=== PATIENT | female | born 1940 | race Caucasian/White ===

== ENCOUNTER → 2024-10-30 | Outpatient (CLI) | payer MEDICARE, BC, SELFPAY ==
[2024-10-30 12:58] LABS: Basophils % (Auto) 0 % (0-2.5); Eosinophils # (Auto) 0.1 Thou/mm3 (0.0-0.5); Eosinophils % (Auto) 1 % (0-10); Hematocrit 44.7 % (36.0-46.0); Hemoglobin 14.5 g/dL (12.0-16.0); Immature Granulocytes % (Auto) 0 % (0-0); Immature Granulocytes Auto 0.03 Thou/mm3 (0.00-0.00); Lymphocytes # (Auto) 1.5 Thou/mm3 (1.0-4.8); Lymphocytes % (Auto) 22 % (10-50); Mean Corpuscular HGB Conc 32.4 g/dl (31.0-37.0); Mean Corpuscular Hemoglobin 30.3 pg (25.0-35.0); Mean Corpuscular Volume 94 fL (80-100); Monocytes # (Auto) 0.6 Thou/mm3 (0.0-0.8); Monocytes % (Auto) 9 % (0-12); Neutrophils # (Auto) 4.6 Thou/mm3 (1.8-7.7); Neutrophils % (Auto) 68 % (37-80); Nucleated Red Blood Cell % 0 /100 WBC (0); Platelet Count 257 Thou/mm3 (140-440); RDW Standard Deviation 45.1 fL (36.4-46.3); Red Blood Count 4.78 Miln/mm3 (4.00-5.20); White Blood Count 6.8 Thou/mm3 (3.6-11.0)
[2024-10-30 13:16] LABS: Collection Type, Urine Clean Catch
[2024-10-30 13:21] LABS: Alanine Aminotransferase 16 U/L (10-49); Albumin, Serum 4.5 gm/dL (3.4-4.8); Albumin/Globulin Ratio 1.8 (1.2-2.2); Alkaline Phosphatase 129 U/L (46-116); Anion Gap 6 (7-16); Aspartate Amino Transferase 29 U/L (0-34); BUN/Creatinine Ratio 17 Ratio (12-20); Bilirubin,Total 0.8 mg/dL (0.3-1.2); Blood Urea Nitrogen 19 mg/dL (9-23); Calcium 10.2 mg/dL (8.3-10.6); Calcium (Corrected) 10.2 mg/dL (8.5-10.1); Carbon Dioxide 31.3 mMol/L (20.0-31.0); Cardiac Risk Estimate 3.3 RATIO (3.7-5.6); Chloride 104 mMol/L (98-107); Cholesterol 194 mg/dL (132-200); Creatinine (Component) 1.1 mg/dL (0.6-1.3); Free T4 (Free Thyroxine) 1.21 ng/dL (0.89-1.76); Globulin 2.5 gm/dL (2.3-3.5); Glucose 99 mg/dL (74-106); HDL Cholesterol 59 mg/dL (40-60); LDL Cholesterol,Calculated 108 mg/dL (0-130); Osmolality,Calculated 283 (275-295); Potassium 4.7 mMol/L (3.4-5.1); Sodium 141 mMol/L (136-145); Thyroid Stimulating Hormone 1.93 uIU/mL (0.55-4.78); Triglycerides 133 mg/dL (30-150); eGFR 50 See Note
[2024-10-30 13:44] LABS: Bilirubin,Urine Negative (Negative); Blood,Urine Negative (Negative); Clarity,Urine Turbid (Clear/Hazy); Color,Urine Yellow (Lt Yel-Yel); Glucose, Urine Negative (Negative); Ketones,Urine Negative (Negative); Leukocyte Esterase,Urine Positive (Negative); Nitrite,Urine Positive (Negative); PH,Urine 6.5 (5.0-7.0); Protein,Urine Negative (Neg - Trace); RBC,Urine 2 /hpf (0-3); Squamous Epithelial Cell,Urine 2 /hpf (0-5); Urobilinogen,Urine Negative mg/dL (0.0-1.0); WBC,Urine 27 /hpf (0-5)
[2024-10-30 13:50] LABS: Culture Indicated,Urine Yes
== END | disposition home or self-care (01) ==
LOC: COPL 12:29
PROVIDERS: PCP Internal Medicine; Referring Provider Internal Medicine; Visit Provider Internal Medicine
DX: I10 Essential (primary) hypertension (principal)
CPT/HCPCS: 36415; 80053; 80061; 81001; 84439; 84443; 85025; 87077; 87086; 87186

== ENCOUNTER 2025-03-23 10:29 | Emergency (ER) | payer MEDICARE, BC, SELFPAY ==
[2025-03-23 10:55] VITALS: BP 150/83; PULSE 81; RESP 18; TEMP 37.2; O2SAT 97; BMI 23.3
--- NOTE | 2025-03-23 11:25 | XR_ITS ---
Examination: Foot, left, 3 views Technique: AP, oblique, lateral views foot, 3 views Date and time of exam: March 23, 2025, 1133 hrs. Indications: Patient fell today with injury to the foot, foot pain Findings: Severe osteopenia No acute fracture No dislocation Impression: No acute fracture Given the severe osteopenia, suggest short-term follow-up foot films as clinically warranted
--- NOTE | 2025-03-23 11:25 | XR_ITS ---
EXAMINATION: Ankle, right 3 views . Technique: Ankle AP, oblique, lateral 3 views Date and time of exam: March 23, 2025, 1133 hrs. Indications: Fell today with into the ankle, ankle pain. Findings: Severe osteopenia. No acute fracture. No ankle dislocation Impression: No acute fracture
--- NOTE | 2025-03-23 11:51 | PD.EDANKLE ---
Lower Extremity Injury RME/HPI General Chief Complaint: Ankle/Foot Injury Stated Complaint: Left foot pain since yesterday Time Seen by Provider: 03/23/25 10:52 Arrival date/time: 03/23/25 10:29 This is an 84-year-old female that comes into the emergency room complaining of left ankle injury. Patient states that she was laying down and she felt like someone was at her door. Patient states she tripped over her recliner and injured her left ankle. Patient's left ankle slightly swollen. Patient reports no other injuries. Related Data Home Medications ?Medication ?Instructions ?Recorded ?Confirmed flecainide 100 mg tablet 100 mg PO QDAY 02/22/19 02/22/19 Allergies Allergy/AdvReac Type Severity Reaction Status Date / Time Penicillins Allergy Intermediate Hives Verified 03/23/25 10:33 Sulfa (Sulfonamide Allergy Unknown Verified 03/23/25 10:33 Antibiotics) Review of Systems Review of Systems Systems Reviewed: All systems reviewed, normal except as documented Past Medical History Past Medical History NEUROLOGIC: Negative Neurological Disorders or Seizures CARDIAC: Positive Cardiac Disorders and Atrial Fibrillation (HAD RECENT ABLATION); Negative Congestive Heart Failure RESPIRATORY: Negative Chronic Obstructive Pulmonary Disease (COPD) GASTROINTESTINAL: Positive Gastrointestinal Disorders (ECTAL BLEEDING), Gastrointestinal Bleed (RECTAL) and Gastroesophageal Reflux Disease (OCCASSIONAL); Negative Colorectal Cancer GENITOURINARY: Negative Genitourinary Disorders or Renal Disease REPRODUCTIVE: Positive Breast Cancer (RIGHT BREAST) and Previous Pregnancies (X2) MUSCULOSKELETAL: Positive Musculoskeletal Disorders and Arthritis; Negative Bone Cancer or Carpal Tunnel Syndrome ENDOCRINE: Negative Endocrine Disorders, Diabetes Mellitus Type 1 or Diabetes Mellitus Type 2 HEMATOLOGIC: Positive Clotting Problems (ON ELOQUIS); Negative Blood Disorders OTHER HISTORY: Positive Radiation Therapy, Chicken Pox, Cancer and Breast Cancer (RIGHT BREAST); Negative Falls, Blood Transfusions, Blood Transfusion Reaction, Anesthesia Reactions, Organ Transplant, MRSA, Cervical Cancer, Colorectal Cancer, Lung Cancer or Ovarian Cancer Family History FAMILY HISTORY: Positive Family Cardiac Disorders (HTN- [place]) Surgical History SURGICAL: Positive Cardiac Surgery (CARDIAC ABLATION) and Hysterectomy; Negative Endocrine Surgery, Ear Surgery, Abdominal Surgery, Nephrectomy, Joint Replacement, Amputation, Open Reduction Internal Fixation, Arthroscopy or Organ Transplant Social History SMOKING STATUS: Never smoker ED Exam Narrative Physical exam: VITAL SIGNS: Reviewed. GENERAL APPEARANCE: Alert and interactive, follows commands, no acute distress HEAD AND FACE: Non-traumatic. ENT: PERRL, conjuctiva pink and clear, eyelid no trauma, Mucous membrane moist. NECK: Supple, nontender, no nuchal rigidity. CHEST: No tenderness, no crepitus, no paradoxical movement, no retractions. LUNGS: breathing even and unlabored HEART: Regular rate, cap refill less than 2 seconds ABDOMEN: Soft, nondistended, no guarding, nontender, no rebound, no masses, NEUROLOGICAL: Gross motor function intact sensory function intact, Appropriate for age. MUSCULOSKELETAL: low back nontender, full range of motion. EXTREMITIES: mild swelling left ankle, pain when bearing weight, full rom with pain, Distal neurovascular status intact bilateral foot SKIN: Color pink, dry Course Quality Measures none Orders Category Date Time Status Splint / Immobilizer STAT Care 03/23/25 13:46 Completed XR ankle comp LT min 3V Stat Exams 03/23/25 11:25 Completed XR foot comp LT min 3V Stat Exams 03/23/25 11:25 Completed Vital Signs Vital signs: Vital Signs Temperature 98.9 F 03/23/25 10:55 Pulse Rate 81 03/23/25 10:55 Respiratory Rate 18 03/23/25 10:55 Blood Pressure 150/83 H 03/23/25 10:55 Pulse Oximetry (%) 97 03/23/25 10:55 Oxygen Delivery Method Room Air 03/23/25 10:55 Extremity Injury, Lower MDM Narrative MDM Narrative:: reviewed x rays with . No acute fracture seens. Today patient had xrays done. There was no acute fracture seen. Exam appeared unremarkable. I explained to patient at length that if there was continued pain to this area or worsened to come back to ED or see primary provider for more xrays or further testing such as CT scan or MRI. X rays are not perfect and sometimes serial films needed. Patient verbalized understanding. Patient states they will follow up with primary provider in 1-2 days or come back to ED if symptoms change or worsen. I spoke to patient to ice and elevate leg. Will splint patient's leg today. Patient told to follow-up with primary provider in 1 to 2 days. Come back to the emergency room if symptoms change or worsen. May need a repeat x-ray for continued pain. Patient verbalized understanding. foot x ray: Findings: Severe osteopenia No acute fracture No dislocation Impression: No acute fracture Given the severe osteopenia, suggest short-term follow-up foot films as clinically warranted ankle x ray: Findings: Severe osteopenia. No acute fracture. No ankle dislocation Impression: No acute fracture Patient data External records reviewed:: [facility] previous records Clinical information provided by:: patient Social determinants that could affect healthcare access:: none Patient has the following chronic illnesses:: none How is presenting disease/condition affected by chronic disease/condition?: uneffected by Evaluation data The following diagnostics were reviewed and interpreted by me:: radiology exam(s) Lab and/or radiology exams considered but not ordered:: none Interpretation Summary: see note Medications / Prescriptions Medications or Prescriptions considered but not ordered:: none Medication administrations:: see mar Consultations Consultation(s) initiated? (list below): No Diagnosis Most likely diagnosis given after review of the tests above:: contusion to ankle Admission Indicated Admission indicated?: not indicated Admission Request Was there a request for admission?: No Disposition Plan Disposition Plan: Discharge Discharge Attestation Discharge Attestation: The patient and all family members were given an opportunity to ask questions and understood the discharge instructions. Discharge instructions specifically effects, indications for sooner follow up or return to the emergency department, and the expected course of current diagnosis. Patient condition: Stable Discharge Plan Plan Patient Disposition: HOME (Self Care) Patient condition on transfer: Stable Prescriptions/Referrals Prescriptions/Med Rec: No Action flecainide 100 mg Tablet 100 mg PO QDAY Referrals: Mila Almendarez MD [Primary Care Provider] - In 1 week Problem List Clinical Impression: Acute left ankle pain, Contusion Patient/Caregiver Discharge Instructions Discharge Activity: activity as tolerated Education Materials: Carol MCKEONusion Bone Tx Additional Instructions: Follow up with primary provider in 1-2 days. Come back to ED if symptoms change or worsen Print Language: Ukrainian Stand Alone Forms: [employer] Award Info., Patient Portal Info Letter PA/CHILD CARE SITTER Supervising Physician PA/HYUN Supervising Physician: reyes
[2025-03-23 12:52] VITALS: BP 152/73; PULSE 73; RESP 17; TEMP 36.6; O2SAT 96
== END 2025-03-23 14:26 | disposition home or self-care (01) ==
PROVIDERS: Emergency Provider Emergency Medicine; PCP Internal Medicine
DX: S90.32XA Contusion of left foot, initial encounter (principal); S90.02XA Contusion of left ankle, initial encounter; W18.09XA Striking against other object with subsequent fall, initial encounter
CPT/HCPCS: 29515; 73610; 73630; 99283

== ENCOUNTER → 2025-03-29 | Outpatient (CLI) | payer MEDICARE, BC, SELFPAY ==
--- NOTE | 2025-03-29 09:30 | XR_ITS ---
Examination: MRI left ankle, without contrast Date and time of exam: March 29, 2025 1012 hours Comment ankle pain and swelling 1 week INDICATIONS: History displaced fracture lateral malleolus left tibia Technique: Multiple axial sagittal and coronal images of the left ankle have been obtained with the Siemens high-resolution 1.5 Anita MRI scanner. Images obtained include T2-weighted fat-suppressed sagittal sections, TR 3500, TE 46, T2 weighted coronal fat suppressed images, TR 3050, TE 84, T2-weighted transverse fat suppressed images, TR 3260, TE 63, proton density transverse images, TR 4720 TE 46, and T1 weighted coronal images, TR 560, TE 13. Findings: Microtrabecular type fracture lines involving the anterior talus with marrow edema Achilles tendon intact Plantar fascia intact Mild to moderate diffuse narrowing joints of the ankle No ankle dislocation Edema along the lateral aspect of the ankle Anterior posterior inferior tibiofibular ligaments intact Moderate sprain posterior talofibular ligament IMPRESSION: Bone contusion and microtrabecular fracture lines anterior talus
== END | disposition home or self-care (01) ==
PROVIDERS: PCP Internal Medicine; Referring Provider Orthopaedic Surgery; Visit Provider Orthopaedic Surgery
DX: S90.02XA Contusion of left ankle, initial encounter (principal); S92.192A Other fracture of left talus, initial encounter for closed fracture; X58.XXXA Exposure to other specified factors, initial encounter
CPT/HCPCS: 73721

== ENCOUNTER → 2025-04-30 | Outpatient (CLI) | payer MEDICARE, BC, SELFPAY ==
--- NOTE | 2025-04-30 | XR_ITS ---
EXAMINATION: Ankle, right 3 views . Technique: Ankle AP, oblique, lateral 3 views Date and time of exam: April 30, 2025 1227 hours INDICATIONS: Injury to the ankle this week, ankle pain. FINDINGS: Severe osteopenia. No fracture or dislocation IMPRESSION: No fracture or dislocation
== END | disposition home or self-care (01) ==
PROVIDERS: PCP Internal Medicine; Referring Provider Orthopaedic Surgery; Visit Provider Orthopaedic Surgery
DX: S82.62XA Displaced fracture of lateral malleolus of left fibula, initial encounter for closed fracture (principal); X58.XXXA Exposure to other specified factors, initial encounter
CPT/HCPCS: 73610